=== PATIENT | female | born 1975 | race Hispanic/Latino ===

== ENCOUNTER 2024-11-29 12:09 | Emergency (ER) | payer OTHER ==
[~2024-11-29] VITALS: Ht 162.6 cm; Wt 127.5 kg
[2024-11-29 12:20] VITALS: PULSE 60; RESP 20; TEMP 98.2; O2SAT 98
== END 2024-11-29 12:30 | disposition left against medical advice (07) ==
LOC: FSED 12:15
DX: M79.602 Pain in left arm (principal)
CPT/HCPCS: 99281